=== PATIENT | female | born 1970 | race African-American/Black ===

== ENCOUNTER 2017-07-22 13:02 | Outpatient (CLI) | payer OTHER | END 2017-07-22 13:03 | disposition home or self-care (01) | LOC: BICMAMMO 13:02 | PROVIDERS: ATTEND Family Medicine | DX: Z12.31 Encounter for screening mammogram for malignant neoplasm of breast (principal); F17.200 Nicotine dependence, unspecified, uncomplicated | CPT/HCPCS: 71046; 77063; 77067 ==

== ENCOUNTER 2018-08-17 10:27 | Outpatient (CLI) | payer OTHER ==
--- NOTE | 2018-08-17 10:58 | MMO ---
Bilateral MAMMO Bilat Screen [facility]. CLINICAL HISTORY: Patient is 47 years old and is seen for screening. The patient has no family history of breast cancer. The patient has no personal history of cancer. VIEWS: The views performed were: bilateral craniocaudal with tomosynthesis and bilateral mediolateral oblique with tomosynthesis. FILMS COMPARED: The present examination has been compared to prior imaging studies performed at [facility] on 05/16/2015, 06/11/2016, 06/16/2016 and 07/22/2017. MAMMOGRAM FINDINGS: There are scattered fibroglandular densities. There are no suspicious masses, suspicious calcifications, or new areas of architectural distortion. IMPRESSION: THERE IS NO MAMMOGRAPHIC EVIDENCE OF MALIGNANCY. A ROUTINE FOLLOW-UP MAMMOGRAM IN 1 YEAR IS RECOMMENDED. THE RESULTS OF THIS EXAM WERE SENT TO THE PATIENT. ACR BI-RADS Category 1 - Negative MAMMOGRAPHY NOTE: 1. A negative mammogram report should not delay a biopsy if a dominant of clinically suspicious mass is present. 2. Approximately 10% to 15% of breast cancers are not detected by mammography. 3. Adenosis and dense breasts may obscure an underlying neoplasm.
== END 2018-08-17 10:28 | disposition home or self-care (01) ==
LOC: BICMAMMO 10:27
PROVIDERS: ATTEND Family Medicine
DX: Z12.31 Encounter for screening mammogram for malignant neoplasm of breast (principal)
CPT/HCPCS: 77063; 77067

== ENCOUNTER 2019-02-13 08:46 | Emergency (ER) | payer OTHER ==
[2019-02-13] MEDS ORDERED: predniSONE 20 MG TAB ONE (10:16)
--- NOTE | 2019-02-13 10:35 | RAD ---
EXAM: Single view of the chest HISTORY: Cough and congestion for 3 days COMPARISON: None FINDINGS: Single view of the chest shows a normal sized cardiomediastinal silhouette. There is no laurence dence of consolidation, mass, or pleural effusion. The bones are unremarkable. IMPRESSION: No evidence of acute cardiopulmonary disease
== END 2019-02-13 11:41 | disposition home or self-care (01) ==
LOC: ERS 08:46
DX: J45.901 Unspecified asthma with (acute) exacerbation (principal); F17.210 Nicotine dependence, cigarettes, uncomplicated
CPT/HCPCS: 71045; 87804; 94640; J7512; J7620

== ENCOUNTER 2019-08-22 09:55 | Outpatient (CLI) | payer OTHER ==
--- NOTE | 2019-08-22 10:31 | MMO ---
Bilateral MAMMO Bilat Screen [facility]. CLINICAL HISTORY: Patient is 48 years old and is seen for screening. The patient has no family history of breast cancer. The patient has no personal history of cancer. VIEWS: The views performed were: bilateral craniocaudal with tomosynthesis and bilateral mediolateral oblique with tomosynthesis. FILMS COMPARED: The present examination has been compared to prior imaging studies performed at [facility] on 06/11/2016, 06/16/2016, 07/22/2017 and 08/17/2018. This study has been interpreted with the assistance of computer-aided detection. MAMMOGRAM FINDINGS: There are scattered fibroglandular densities. There are no suspicious masses, suspicious calcifications, or new areas of architectural distortion. IMPRESSION: THERE IS NO MAMMOGRAPHIC EVIDENCE OF MALIGNANCY. A ROUTINE FOLLOW-UP MAMMOGRAM IN 1 YEAR IS RECOMMENDED. THE RESULTS OF THIS EXAM WERE SENT TO THE PATIENT. ACR BI-RADS Category 1 - Negative MAMMOGRAPHY NOTE: 1. A negative mammogram report should not delay a biopsy if a dominant of clinically suspicious mass is present. 2. Approximately 10% to 15% of breast cancers are not detected by mammography. 3. Adenosis and dense breasts may obscure an underlying neoplasm. Reported by: ADRIAN TREJO MD Electonically Signed: [id number]
== END 2019-08-22 09:56 | disposition home or self-care (01) ==
LOC: BICMAMMO 09:55
PROVIDERS: ATTEND Family Medicine
DX: Z12.31 Encounter for screening mammogram for malignant neoplasm of breast (principal)
CPT/HCPCS: 77063; 77067

== ENCOUNTER 2020-01-22 12:14 | Emergency (ER) | payer BC, OTHER ==
[2020-01-22] MEDS ORDERED: Ketorolac Tromethamine 30 MG/ML VIAL ONE (13:07)
[2020-01-22] MEDS ORDERED: Dexamethasone 10 MG/ML VIAL ONE (13:08)
== END 2020-01-22 13:40 | disposition home or self-care (01) ==
LOC: ERS 12:14
DX: M25.551 Pain in right hip (principal); M54.16 Radiculopathy, lumbar region; J45.909 Unspecified asthma, uncomplicated; F17.210 Nicotine dependence, cigarettes, uncomplicated; Z87.42 Personal history of other diseases of the female genital tract
CPT/HCPCS: 96372; 99283; J1100; J1885

== ENCOUNTER 2021-01-16 14:48 | Outpatient (CLI) | payer BC | END 2021-01-16 14:49 | disposition home or self-care (01) | LOC: BICMAMMO 14:48 | PROVIDERS: ATTEND Family Medicine | DX: Z12.31 Encounter for screening mammogram for malignant neoplasm of breast (principal); R05.9 Cough, unspecified; Z72.0 Tobacco use | CPT/HCPCS: 71046; 77063; 77067 ==

== ENCOUNTER 2021-03-25 12:52 | Outpatient (CLI) | payer OTHER, BC ==
[2021-03-25 13:39] LABS: #Eosinphils 0.4 10x3/uL (0.0-0.5); #Monocytes 0.7 10x3/uL (0.0-1.1); #Neutrophils 4.5 10x3/uL (1.5-8.4); %Basophils 0.5 % (0.0-2.0); %Eosinophils 4.8 % (0.0-6.0); %Lymphocytes 32.4 % (18.0-47.0); %Monocytes 8.7 % (0.0-10.0); %Neutrophils 53.2 % (40.0-75.0); Hemoglobin 12.1 g/dL (12.0-15.5); Mean Corpuscular HGB CONC 30.6 g/dL (32.0-36.0); Mean Corpuscular Hemoglobin 26.4 pg (27.0-33.0); Mean Corpuscular Volume 86.1 fl (81.6-98.3); Platelet Count 401 10x3/uL (150-450); RBC Distribution Width 15.2 % (11.5-14.5); Red Blood Cell (RBC) Count 4.59 10x6/uL (3.90-5.03); White Blood Cell (WBC) Count 8.5 10x3/uL (3.5-10.5)
== END 2021-03-25 12:53 | disposition home or self-care (01) ==
LOC: LABBT 12:52
PROVIDERS: ATTEND Orthopaedic Surgery
DX: Z01.812 Encounter for preprocedural laboratory examination (principal); M75.101 Unspecified rotator cuff tear or rupture of right shoulder, not specified as traumatic; M67.921 Unspecified disorder of synovium and tendon, right upper arm
CPT/HCPCS: 85025

== ENCOUNTER 2021-04-04 09:23 | Day surgery (SDC) | payer OTHER ==
[2021-03-20 13:28] VITALS: BMI 31.1
[2021-04-04] MEDS ORDERED: Midazolam HCl 2 mg/2 ml Vial ONE (10:50)
[2021-04-04] MEDS ORDERED: Fentanyl 100 MCG/2 ML VIAL ONE ×3 (10:50→13:29)
[2021-04-04] MEDS ORDERED: Sodium Chloride 0.9% 10 ML ONE (10:50)
[2021-04-04] MEDS ORDERED: Ropivacaine 0.5% HCl/PF (150 MG/30 ML VIAL) ONE (10:51)
[2021-04-04] MEDS ORDERED: Famotidine/PF 20 mg/2ml Vial ONE (11:05)
[2021-04-04] MEDS ORDERED: ceFAZolin 2 GM/Dextrose 50 ML IVPB ONE (11:26)
[2021-04-04] MEDS ORDERED: PROPOFOL 200 MG/20 ML VIAL ONE (11:40)
[2021-04-04] MEDS ORDERED: Ketorolac Tromethamine 30 MG/ML VIAL ONE (11:40)
[2021-04-04] MEDS ORDERED: Ondansetron PF 4 MG/2 ML Vial ONE (11:40)
[2021-04-04] MEDS ORDERED: Rocuronium Bromide 10 MG/ML (10ML VIAL) ONE (11:40)
[2021-04-04] MEDS ORDERED: PHENYLEPHRINE-NS 100 MCG/ML 10 ML SYRINGE ONE (11:40)
[2021-04-04] MEDS ORDERED: Esmolol 100 MG/10 ML VIAL ONE (11:40)
[2021-04-04] MEDS ORDERED: Lidocaine 1% PF 5 ML VIAL ONE (11:40)
[2021-04-04] MEDS ORDERED: Glycopyrrolate 0.2 MG/ML 5 ML SYRINGE ONE (11:40)
[2021-04-04] MEDS ORDERED: Dexamethasone 20 MG/5 ML VIAL ONE (11:40)
[2021-04-04] MEDS ORDERED: Bupivacaine PF 0.5% 30 ML VIAL ONE (11:40)
[2021-04-04] MEDS ORDERED: Ropivacaine 0.2% 550 ML 550 ML NERVE BLCK SCH (12:00)
[2021-04-04] MEDS ORDERED: HYDROcodone/Acetaminophen 5/325 mg Tablet PO PRN ×2 (12:00)
[2021-04-04] MEDS ORDERED: Zolpidem Tartrate 5 MG TAB PO PRN (12:00)
[2021-04-04] MEDS ORDERED: Ketorolac Tromethamine 30 MG/ML VIAL IVP SCH (12:00)
[2021-04-04] MEDS ORDERED: traMADol HCl 50 MG TAB PO PRN ×2 (12:00)
[2021-04-04] MEDS ORDERED: Promethazine HCl 25 MG/ML VIAL IM PRN (12:00)
[2021-04-04] MEDS ORDERED: Ondansetron PF 4 MG/2 ML Vial IVP PRN (12:00)
[2021-04-04] MEDS ORDERED: Xylocaine 1% w/ Epi 1:100K 10 ML VIAL ONE (12:07)
[2021-04-04] MEDS ORDERED: Labetalol HCl 100 MG/20 ML VIAL ONE (14:10)
== END 2021-04-04 16:45 | disposition home or self-care (01) ==
LOC: SDC 09:23
PROVIDERS: ATTEND Orthopaedic Surgery
PROC: 0RNJ4ZZ Release Right Shoulder Joint, Percutaneous Endoscopic Approach (ICD-10-PCS; principal; 2021-04-04)
PROC: 3E0T3BZ Introduction of Anesthetic Agent into Peripheral Nerves and Plexi, Percutaneous Approach (ICD-10-PCS; principal; 2021-04-04)
PROC: 0LS30ZZ Reposition Right Upper Arm Tendon, Open Approach (ICD-10-PCS; principal; 2021-04-04)
PROC: 0RHJ04Z Insertion of Internal Fixation Device into Right Shoulder Joint, Open Approach (ICD-10-PCS; principal; 2021-04-04)
PROC: 0LM14ZZ Reattachment of Right Shoulder Tendon, Percutaneous Endoscopic Approach (ICD-10-PCS; principal; 2021-04-04)
DX: M75.121 Complete rotator cuff tear or rupture of right shoulder, not specified as traumatic (principal); M67.88 Other specified disorders of synovium and tendon, other site; S43.491A Other sprain of right shoulder joint, initial encounter; Z79.899 Other long term (current) drug therapy; Z91.040 Latex allergy status
CPT/HCPCS: A4306; C1713; J0690; J1100; J1885; J2250; J2405; J2704; J2795; J3010; J7620; S0020; S0028

== ENCOUNTER 2022-01-13 15:19 | Outpatient (CLI) | payer BC | END 2022-01-13 15:20 | disposition home or self-care (01) | LOC: BICRAD 15:19 | PROVIDERS: ATTEND Family Medicine | DX: M25.561 Pain in right knee (principal); R05.9 Cough, unspecified; J98.4 Other disorders of lung; Z72.0 Tobacco use | CPT/HCPCS: 71046 ==

== ENCOUNTER 2022-11-04 14:39 | Outpatient (CLI) | payer BC | END 2022-11-04 14:40 | disposition home or self-care (01) | LOC: RAD 14:39 | PROVIDERS: ATTEND Internal Medicine | DX: R06.00 Dyspnea, unspecified (principal) | CPT/HCPCS: 71046 ==

== ENCOUNTER 2023-03-12 14:29 | Outpatient (CLI) | payer BC | END 2023-03-12 14:30 | disposition home or self-care (01) | LOC: BICMAMMO 14:29 | PROVIDERS: ATTEND Obstetrics & Gynecology | DX: Z12.31 Encounter for screening mammogram for malignant neoplasm of breast (principal) | CPT/HCPCS: 77063; 77067 ==

== ENCOUNTER 2023-03-12 15:04 | Outpatient (CLI) | payer BC | END 2023-03-12 15:05 | disposition home or self-care (01) | LOC: BICCT 15:04 | PROVIDERS: ATTEND Internal Medicine | DX: J45.20 Mild intermittent asthma, uncomplicated (principal) | CPT/HCPCS: 71250 ==